=== PATIENT | male | born 1980 | race Caucasian/White ===

== ENCOUNTER 2017-11-04 13:21 | Inpatient (IN) ==
[2017-11-04] MEDS ORDERED: CLINDAMYCIN INJ 600 MG in PREMIX 1 EACH IV STA (13:52)
[2017-11-04] MEDS ORDERED: HYDROmorphone 2 MG/1 ML VIAL IV STA ×2 (13:55→16:19)
[2017-11-04] MEDS ORDERED: ONDANSETRON 4 MG/2 ML VIAL IV ONE ×2 (13:55→20:14)
[2017-11-04 14:45] LABS: Basophils # 0.1 10*3/uL (0.0-0.2); Basophils % 0.2 % (0.0-0.8); Eosinophils # 0.2 10*3/uL (0.0-0.87); Eosinophils % 0.7 % (0.00-10.9); Hematocrit 39.7 VOL% (42.0-52.0); Hemoglobin 13.2 GM/DL (14.0-18.0); Immature Granulocytes % 1.1 %; Immature Granulocytes Absolute 0.28 #; Lymphocytes # 2.2 10*3/uL (1.4-4.0); Lymphocytes % 8.7 % (21.2-54.2); Mean Corpuscular HGB Conc 33.2 GM/DL (32-36); Mean Corpuscular Hemoglobin 28 PG (27-34); Mean Corpuscular Volume 83.8 FL (87-102); Mean Platelet Volume 9.5 FL (9.6-12.0); Monocytes # 1.4 10*3/uL (0.11-0.8); Monocytes % 5.5 % (1.7-12.7); Neutrophils % 83.8 % (38.7-73.9); Platelet Count 375 T/CUMM (130-400); Red Blood Count 4.74 MC/CUMM (3.8-5.5); Red Cell Distribution Width 13.5 % (9.3-17.3); White Blood Count 25.1 T/CUMM (4-12)
[2017-11-04 15:06] LABS: Albumin 2.2 G/DL (3.4-5.0); Bilirubin,Total 0.6 MG/DL (0.2-1.0); Calcium 8.8 MG/DL (8.5-10.1); Osmolality,Calculated 278.5 MOS/KG (273-304); Potassium 3.9 MMOL/L (3.5-5.1); Total Protein 7.4 G/DL (6.4-8.3)
[2017-11-04 15:07] LABS: Lactic Acid 1.7 MMOL/L (0.4-2.0)
[2017-11-04] MEDS ORDERED: INSULIN REGULAR 100 UNIT/ML SUBCUT STA (15:08)
[2017-11-04] MEDS ORDERED: TOBRAMYCIN INJ 80 MG in SODIUM CHLORIDE 0.9% 100 ML IV STA (15:21)
[2017-11-04] MEDS ORDERED: SODIUM CHLORIDE 0.9% 1,000 ML IV STA (15:23)
[2017-11-04 15:56] LABS: Apearance,Urine CLEAR (Clear); Bilirubin,Urine Negative (Negative); Blood, Urine Negative (Negative); Glucose,Urine (UA) >=500 mg/dL (Negative); Hyaline Casts,Urine 1 /LPF (0-3); Ketones,Urine 80 mg/dL (Negative); Mucus,Urine Occasional /LPF (Occasional); Nitrite,Urine Negative (Negative); Protein,Urine 30 MG/DL; RBC,Urine 2 /HPF (0-4); Sperm,Urine Occasional /HPF (Negative); Squamous Epithelial Cell,Urine Occasional /HPF (0-10); Urine Color Yellow (Yellow); Urine Specific Gravity 1.035 (1.001-1.035); Urine Urobilinogen < 2.0 EU/DL (0.2-1.0); WBC,Urine 11 /HPF (0-6)
[2017-11-04 16:00] LABS: Band Neutrophils 1 % (0-10); Eosinophils 1 % (0-10); Lymphocytes 9 % (20-55); Segmented Neutrophils 86 % (50-85); Total Cells Counted 100
[2017-11-04 16:12] LABS: Platelet Estimate Normal
[2017-11-04 16:13] LABS: Polychromasia Slight
[2017-11-04] MEDS ORDERED: DEXTROSE 50% 25 GM/50 ML VIAL IV PRN (18:27)
[2017-11-04] MEDS ORDERED: GLUCAGON 1 MG VIAL IM PRN (18:27)
[2017-11-04] MEDS ORDERED: ONDANSETRON 4 MG/2 ML VIAL ONE ×2 (20:10→20:23)
[2017-11-04 20:16] LABS: Apearance,Urine Slightly Hazy (Clear); Bilirubin,Urine Negative (Negative); Blood, Urine Small mg/dL (Negative); Glucose,Urine (UA) >=500 mg/dL (Negative); Ketones,Urine 20 mg/dL (Negative); Mucus,Urine Occasional /LPF (Occasional); Nitrite,Urine Negative (Negative); Protein,Urine 30 MG/DL; RBC,Urine 10 /HPF (0-4); Squamous Epithelial Cell,Urine Occasional /HPF (0-10); Urine Color Yellow (Yellow); Urine Specific Gravity 1.029 (1.001-1.035); Urine Urobilinogen < 2.0 EU/DL (0.2-1.0); WBC,Urine 1 /HPF (0-6)
[2017-11-04] MEDS ORDERED: PROPOFOL 200 MG/20 ML VIAL IV ONE (20:22)
[2017-11-04] MEDS ORDERED: SEVOFLURANE 1 UNIT/15 MINUTE INH ONE (20:22)
[2017-11-04] MEDS: HYDROmorphone 2 MG/1 ML VIAL IV PRN ×4 (20:23→20:40)
[2017-11-04] MEDS ORDERED: SODIUM CHLORIDE 0.9% 1,000 ML IV ONE (20:23)
[2017-11-04] MEDS ORDERED: ROCURONIUM 100 MG/10 ML VIAL IV ONE (20:23)
[2017-11-04] MEDS ORDERED: SUCCINYLCHOLINE 200 MG/10 ML VIAL ONE (20:23)
[2017-11-04] MEDS ORDERED: fentaNYL 100 MCG/2 ML VIAL ONE (20:23)
[2017-11-04] MEDS ORDERED: ACETAMINOPHEN 1,000 MG/100 ML VIAL IV ONE (20:23)
[2017-11-04] MEDS ORDERED: PROMETHAZINE 25 MG/1 ML VIAL ONE (20:31)
[2017-11-04] MEDS ORDERED: PROMETHAZINE INJ 25 MG in SODIUM CHLORIDE 0.9% 50 ML IV ONE (20:36)
[2017-11-04] MEDS ORDERED: INSULIN GLARGINE 100 UNIT/ML SUBCUT SCH (21:00)
[2017-11-04] MEDS: SODIUM CHLORIDE 0.9% 1,000 ML IV SCH (21:45)
[2017-11-04] MEDS: sitaGLIPtin 25 MG TABLET PO SCH (21:46)
[2017-11-04] MEDS: INSULIN REGULAR 100 UNIT/ML SUBCUT SCH (22:07)
[2017-11-04] MEDS: CLINDAMYCIN INJ 600 MG in PREMIX 1 EACH IV SCH (22:35)
[2017-11-05] MEDS: TOBRAMYCIN INJ 80 MG in SODIUM CHLORIDE 0.9% 100 ML IV SCH ×3 (00:25→17:20)
[2017-11-05] MEDS: HYDROmorphone 2 MG/1 ML VIAL IV PRN ×3 (01:43→15:43)
[2017-11-05] MEDS: CLINDAMYCIN INJ 600 MG in PREMIX 1 EACH IV SCH ×4 (03:39→22:21)
[2017-11-05 06:50] LABS: Basophils # 0.1 10*3/uL (0.0-0.2); Basophils % 0.2 % (0.0-0.8); Eosinophils # 0.3 10*3/uL (0.0-0.87); Eosinophils % 0.9 % (0.00-10.9); Hematocrit 36.8 VOL% (42.0-52.0); Hemoglobin 12.2 GM/DL (14.0-18.0); Immature Granulocytes % 0.9 %; Immature Granulocytes Absolute 0.25 #; Lymphocytes # 2.5 10*3/uL (1.4-4.0); Lymphocytes % 8.8 % (21.2-54.2); Mean Corpuscular HGB Conc 33.2 GM/DL (32-36); Mean Corpuscular Hemoglobin 29 PG (27-34); Mean Corpuscular Volume 86.4 FL (87-102); Mean Platelet Volume 9.5 FL (9.6-12.0); Monocytes # 1.5 10*3/uL (0.11-0.8); Monocytes % 5.2 % (1.7-12.7); Neutrophils # 23.9 10*3/uL (1.4-7.4); Platelet Count 361 T/CUMM (130-400); Red Blood Count 4.26 MC/CUMM (3.8-5.5); White Blood Count 28.5 T/CUMM (4-12)
[2017-11-05 07:12] LABS: Risk Ratio 11.33; VLDL CHOLESTEROL 39.4 MG/DL
[2017-11-05 07:25] LABS: Bilirubin,Total 0.4 MG/DL (0.2-1.0); Calcium 8.4 MG/DL (8.5-10.1); Osmolality,Calculated 281.8 MOS/KG (273-304); Potassium 4.8 MMOL/L (3.5-5.1); Thyroid Stimulating Hormone 1.08 uIU/ml (0.358-3.74); Total Protein 6.9 G/DL (6.4-8.3)
[2017-11-05 07:26] LABS: Band Neutrophils 8 % (0-10); Eosinophils 1 % (0-10); Hypochromasia Slight; Lymphocytes 10 % (20-55); Platelet Estimate Adequate; Segmented Neutrophils 79 % (50-85); Total Cells Counted 100
[2017-11-05] MEDS: metFORMIN 500 MG TABLET PO SCH ×2 (09:27→22:20)
[2017-11-05] MEDS: LISINOPRIL 2.5 MG TABLET PO SCH (09:28)
[2017-11-05] MEDS: INSULIN REGULAR 100 UNIT/ML SUBCUT SCH ×4 (09:28→22:20)
[2017-11-05] MEDS ORDERED: PROMETHAZINE 25 MG/1 ML VIAL IM PRN (13:16)
[2017-11-05] MEDS: ONDANSETRON 4 MG/2 ML VIAL IV PRN (13:32)
[2017-11-05] MEDS: SODIUM HYPOCHLORITE 0.25% IRRIG 473 ML BOTTLE TOP SCH ×2 (13:33→22:20)
[2017-11-05] MEDS: SODIUM CHLORIDE 0.9% 1,000 ML IV SCH (18:43)
[2017-11-05] MEDS: sitaGLIPtin 25 MG TABLET PO SCH (22:20)
[2017-11-05] MEDS: INSULIN GLARGINE 100 UNIT/ML SUBCUT SCH (22:21)
[2017-11-06] MEDS: CLINDAMYCIN INJ 600 MG in PREMIX 1 EACH IV SCH ×2 (05:46→12:47)
[2017-11-06 06:21] LABS: Basophils # 0.1 10*3/uL (0.0-0.2); Basophils % 0.3 % (0.0-0.8); Eosinophils # 0.4 10*3/uL (0.0-0.87); Eosinophils % 2.5 % (0.00-10.9); Hematocrit 34.3 VOL% (42.0-52.0); Hemoglobin 11.3 GM/DL (14.0-18.0); Immature Granulocytes % 1.1 %; Immature Granulocytes Absolute 0.19 #; Lymphocytes # 2.9 10*3/uL (1.4-4.0); Lymphocytes % 16.5 % (21.2-54.2); Mean Corpuscular HGB Conc 32.9 GM/DL (32-36); Mean Corpuscular Hemoglobin 28 PG (27-34); Mean Corpuscular Volume 83.7 FL (87-102); Mean Platelet Volume 9.7 FL (9.6-12.0); Monocytes # 1.2 10*3/uL (0.11-0.8); Monocytes % 7.1 % (1.7-12.7); Neutrophils # 12.6 10*3/uL (1.4-7.4); Neutrophils % 72.5 % (38.7-73.9); Platelet Count 357 T/CUMM (130-400); Red Cell Distribution Width 14.1 % (9.3-17.3); White Blood Count 17.4 T/CUMM (4-12)
[2017-11-06 06:53] LABS: Osmolality,Calculated 271.2 MOS/KG (273-304); Potassium 3.8 MMOL/L (3.5-5.1)
[2017-11-06] MEDS: metFORMIN 500 MG TABLET PO SCH ×2 (08:54→21:14)
[2017-11-06] MEDS: INSULIN REGULAR 100 UNIT/ML SUBCUT SCH ×5 (08:55→21:15)
[2017-11-06] MEDS: LISINOPRIL 2.5 MG TABLET PO SCH (08:55)
[2017-11-06] MEDS: SODIUM CHLORIDE 0.9% 1,000 ML IV SCH (09:06)
[2017-11-06] MEDS ORDERED: ERGOCALCIFEROL 50,000 UNIT CAPSULE PO SCH (09:30)
[2017-11-06] MEDS: LACTOBACILLUS ACIDOPHILUS/BULGARICUS CAPLET PO SCH (12:47)
[2017-11-06] MEDS ORDERED: LEVOFLOXACIN INJ 500 MG in PREMIX 1 EACH IV SCH (13:00)
[2017-11-06] MEDS ORDERED: LINEZOLID INJ 600 MG in PREMIX 1 EACH IV SCH (15:00)
[2017-11-06] MEDS: FLUCONAZOLE 100 MG TABLET PO SCH (15:11)
[2017-11-06] MEDS: SODIUM HYPOCHLORITE 0.25% IRRIG 473 ML BOTTLE TOP SCH ×2 (16:21→21:15)
[2017-11-06] MEDS: ONDANSETRON 4 MG/2 ML VIAL IV PRN (16:21)
[2017-11-06] MEDS: HYDROmorphone 2 MG/1 ML VIAL IV PRN (16:22)
[2017-11-06] MEDS: cefTRIAXone 1,000 MG in SYRINGE 1 EACH IV SCH (17:50)
[2017-11-06] MEDS: sitaGLIPtin 25 MG TABLET PO SCH (21:13)
[2017-11-06] MEDS: CALCIUM (CARBONATE)/VITAMIN D 600 MG-400 UNIT TABLET PO SCH (21:14)
[2017-11-06] MEDS: INSULIN GLARGINE 100 UNIT/ML SUBCUT SCH (21:15)
[2017-11-07] MEDS: cefTRIAXone 1,000 MG in SYRINGE 1 EACH IV SCH ×2 (05:11→18:18)
[2017-11-07 06:38] LABS: Basophils % 0.2 % (0.0-0.8); Eosinophils # 0.5 10*3/uL (0.0-0.87); Eosinophils % 3.5 % (0.00-10.9); Hematocrit 35.2 VOL% (42.0-52.0); Hemoglobin 11.2 GM/DL (14.0-18.0); Immature Granulocytes % 1.2 %; Immature Granulocytes Absolute 0.18 #; Lymphocytes % 19.4 % (21.2-54.2); Mean Corpuscular HGB Conc 31.8 GM/DL (32-36); Mean Corpuscular Hemoglobin 28 PG (27-34); Mean Corpuscular Volume 86.9 FL (87-102); Mean Platelet Volume 9.7 FL (9.6-12.0); Monocytes % 6.7 % (1.7-12.7); Neutrophils # 10.7 10*3/uL (1.4-7.4); Platelet Count 374 T/CUMM (130-400); Red Blood Count 4.05 MC/CUMM (3.8-5.5); Red Cell Distribution Width 14.1 % (9.3-17.3); White Blood Count 15.5 T/CUMM (4-12)
[2017-11-07 07:06] LABS: Calcium 8.4 MG/DL (8.5-10.1); Potassium 3.8 MMOL/L (3.5-5.1)
[2017-11-07] MEDS ORDERED: MAGNESIUM SULF RIDER 2 GM in PREMIX 1 EACH IV ONE (07:43)
[2017-11-07] MEDS ORDERED: INSULIN GLARGINE 100 UNIT/ML SUBCUT SCH ×3 (09:00→15:05)
[2017-11-07] MEDS: LACTOBACILLUS ACIDOPHILUS/BULGARICUS CAPLET PO SCH (09:11)
[2017-11-07] MEDS: INSULIN REGULAR 100 UNIT/ML SUBCUT SCH ×7 (09:11→20:37)
[2017-11-07] MEDS: CALCIUM (CARBONATE)/VITAMIN D 600 MG-400 UNIT TABLET PO SCH ×2 (09:11→20:36)
[2017-11-07] MEDS: FLUCONAZOLE 100 MG TABLET PO SCH (09:11)
[2017-11-07] MEDS: metFORMIN 500 MG TABLET PO SCH ×2 (09:31→20:36)
[2017-11-07] MEDS: LISINOPRIL 2.5 MG TABLET PO SCH (09:31)
[2017-11-07] MEDS: HYDROmorphone 2 MG/1 ML VIAL IV PRN (16:57)
[2017-11-07] MEDS: ONDANSETRON 4 MG/2 ML VIAL IV PRN (16:59)
[2017-11-07] MEDS: SODIUM HYPOCHLORITE 0.25% IRRIG 473 ML BOTTLE TOP SCH ×2 (17:39→20:39)
[2017-11-07] MEDS: sitaGLIPtin 25 MG TABLET PO SCH (20:36)
[2017-11-08] MEDS: cefTRIAXone 1,000 MG in SYRINGE 1 EACH IV SCH ×2 (05:53→17:27)
[2017-11-08 06:28] LABS: Basophils # 0.1 10*3/uL (0.0-0.2); Basophils % 0.4 % (0.0-0.8); Eosinophils # 0.5 10*3/uL (0.0-0.87); Eosinophils % 3.1 % (0.00-10.9); Hematocrit 35.2 VOL% (42.0-52.0); Hemoglobin 11.3 GM/DL (14.0-18.0); Immature Granulocytes % 1.2 %; Immature Granulocytes Absolute 0.18 #; Lymphocytes # 2.8 10*3/uL (1.4-4.0); Lymphocytes % 18.6 % (21.2-54.2); Mean Corpuscular HGB Conc 32.1 GM/DL (32-36); Mean Corpuscular Hemoglobin 28 PG (27-34); Mean Corpuscular Volume 86.3 FL (87-102); Mean Platelet Volume 9.9 FL (9.6-12.0); Monocytes % 6.5 % (1.7-12.7); Neutrophils # 10.6 10*3/uL (1.4-7.4); Neutrophils % 70.2 % (38.7-73.9); Platelet Count 399 T/CUMM (130-400); Red Blood Count 4.08 MC/CUMM (3.8-5.5); Red Cell Distribution Width 14.2 % (9.3-17.3); White Blood Count 15.2 T/CUMM (4-12)
[2017-11-08 07:21] LABS: Calcium 8.8 MG/DL (8.5-10.1); Osmolality,Calculated 278.7 MOS/KG (273-304); Potassium 3.9 MMOL/L (3.5-5.1)
[2017-11-08] MEDS ORDERED: MAGNESIUM SULF RIDER 2 GM in PREMIX 1 EACH IV ONE (07:40)
[2017-11-08] MEDS: LACTOBACILLUS ACIDOPHILUS/BULGARICUS CAPLET PO SCH (08:17)
[2017-11-08] MEDS: metFORMIN 500 MG TABLET PO SCH ×2 (08:17→21:26)
[2017-11-08] MEDS: FLUCONAZOLE 100 MG TABLET PO SCH (08:18)
[2017-11-08] MEDS: INSULIN REGULAR 100 UNIT/ML SUBCUT SCH ×7 (08:18→21:27)
[2017-11-08] MEDS: LISINOPRIL 2.5 MG TABLET PO SCH (08:18)
[2017-11-08] MEDS: CALCIUM (CARBONATE)/VITAMIN D 600 MG-400 UNIT TABLET PO SCH ×2 (08:18→21:26)
[2017-11-08] MEDS ORDERED: INSULIN GLARGINE 100 UNIT/ML SUBCUT SCH (08:43)
[2017-11-08] MEDS: HYDROmorphone 2 MG/1 ML VIAL IV PRN ×2 (10:00→13:12)
[2017-11-08] MEDS: SULFAMETHOX/TRIMETHOPRIM 800-160 MG TABLET PO SCH ×2 (11:52→21:26)
[2017-11-08] MEDS: ONDANSETRON 4 MG/2 ML VIAL IV PRN (13:12)
[2017-11-08] MEDS: SODIUM HYPOCHLORITE 0.25% IRRIG 473 ML BOTTLE TOP SCH ×2 (17:13→21:33)
[2017-11-08] MEDS: sitaGLIPtin 25 MG TABLET PO SCH (21:26)
[2017-11-09] MEDS: cefTRIAXone 1,000 MG in SYRINGE 1 EACH IV SCH (04:58)
[2017-11-09 06:35] LABS: Basophils # 0.1 10*3/uL (0.0-0.2); Basophils % 0.3 % (0.0-0.8); Eosinophils # 0.4 10*3/uL (0.0-0.87); Eosinophils % 2.9 % (0.00-10.9); Hematocrit 36.3 VOL% (42.0-52.0); Hemoglobin 11.9 GM/DL (14.0-18.0); Immature Granulocytes % 1.3 %; Lymphocytes # 2.8 10*3/uL (1.4-4.0); Lymphocytes % 18.3 % (21.2-54.2); Mean Corpuscular HGB Conc 32.8 GM/DL (32-36); Mean Corpuscular Hemoglobin 28 PG (27-34); Mean Corpuscular Volume 85.4 FL (87-102); Mean Platelet Volume 9.9 FL (9.6-12.0); Monocytes # 1.1 10*3/uL (0.11-0.8); Monocytes % 6.8 % (1.7-12.7); Neutrophils # 10.8 10*3/uL (1.4-7.4); Neutrophils % 70.4 % (38.7-73.9); Platelet Count 468 T/CUMM (130-400); Red Blood Count 4.25 MC/CUMM (3.8-5.5); Red Cell Distribution Width 14.2 % (9.3-17.3); White Blood Count 15.4 T/CUMM (4-12)
[2017-11-09 06:53] LABS: Calcium 9.2 MG/DL (8.5-10.1); Osmolality,Calculated 274.7 MOS/KG (273-304); Potassium 4.1 MMOL/L (3.5-5.1)
[2017-11-09] MEDS ORDERED: SCOPOLAMINE 1.5 MG PATCH TRANSDERM ONE (08:00)
[2017-11-09] MEDS: INSULIN REGULAR 100 UNIT/ML SUBCUT SCH ×4 (08:38→13:22)
[2017-11-09] MEDS ORDERED: MUPIROCIN 2% OINT 22 GM TUBE TOP ONE (09:43)
[2017-11-09] MEDS ORDERED: PROPOFOL 200 MG/20 ML VIAL IV ONE (10:28)
[2017-11-09] MEDS ORDERED: ALBUTEROL 2.5 MG/3 ML NEB RESP TX ONE (10:29)
[2017-11-09] MEDS ORDERED: MIDAZOLAM 2 MG/2 ML VIAL ONE (10:29)
[2017-11-09] MEDS ORDERED: fentaNYL 100 MCG/2 ML VIAL ONE (10:29)
[2017-11-09] MEDS ORDERED: SEVOFLURANE 1 UNIT/15 MINUTE INH ONE (10:29)
[2017-11-09] MEDS ORDERED: ONDANSETRON 4 MG/2 ML VIAL ONE ×2 (10:29→10:33)
[2017-11-09] MEDS ORDERED: PROMETHAZINE 25 MG/1 ML VIAL ONE (10:29)
[2017-11-09] MEDS ORDERED: ROCURONIUM 100 MG/10 ML VIAL IV ONE (10:30)
[2017-11-09] MEDS ORDERED: SUCCINYLCHOLINE 200 MG/10 ML VIAL ONE (10:30)
[2017-11-09] MEDS ORDERED: HYDROmorphone 2 MG/1 ML VIAL ONE (10:33)
[2017-11-09] MEDS ORDERED: ONDANSETRON 4 MG/2 ML VIAL IV PRN (10:34)
[2017-11-09] MEDS: HYDROmorphone 2 MG/1 ML VIAL IV PRN ×3 (10:38→11:05)
[2017-11-09] MEDS: metFORMIN 500 MG TABLET PO SCH (11:48)
[2017-11-09] MEDS: CALCIUM (CARBONATE)/VITAMIN D 600 MG-400 UNIT TABLET PO SCH (11:48)
[2017-11-09] MEDS: LACTOBACILLUS ACIDOPHILUS/BULGARICUS CAPLET PO SCH (11:48)
[2017-11-09] MEDS: LISINOPRIL 2.5 MG TABLET PO SCH (11:49)
[2017-11-09] MEDS: FLUCONAZOLE 100 MG TABLET PO SCH (11:49)
[2017-11-09] MEDS: SULFAMETHOX/TRIMETHOPRIM 800-160 MG TABLET PO SCH (11:49)
[2017-11-09] MEDS: SODIUM HYPOCHLORITE 0.25% IRRIG 473 ML BOTTLE TOP SCH (11:50)
[2017-11-09] MEDS ORDERED: DEXTROSE 50% 25 GM/50 ML VIAL IV PRN (12:04)
[2017-11-09] MEDS ORDERED: GLUCAGON 1 MG VIAL IM PRN (12:04)
[2017-11-09 12:06] VITALS: BP 143/84
== END 2017-11-09 15:29 | disposition home or self-care (01) | DRG 638 ==
LOC: N.ED 13:21 → N.EDINP 15:22 → SUATTDRO 15:22 → N.EDINP 17:32 → N.5E 18:01
PROVIDERS: ADMIT Emergency Medicine; ATTEND Urology

== ENCOUNTER 2021-09-04 21:35 | Inpatient (IN) ==
[2021-09-04] MEDS ORDERED: SODIUM CHLORIDE 0.9% 3,250 ML IV ONE (22:38)
[2021-09-04 23:21] LABS: Basophils # 0.1 10*3/uL (0.0-0.2); Basophils % 0.3 % (0.0-0.8); Eosinophils # 0.3 10*3/uL (0.0-0.87); Eosinophils % 1.6 % (0.00-10.9); Hematocrit 40.7 VOL% (42.0-52.0); Hemoglobin 13.1 GM/DL (14.0-18.0); Immature Granulocytes % 0.9 %; Immature Granulocytes Absolute 0.17 #; Lymphocytes # 2.8 10*3/uL (1.4-4.0); Lymphocytes % 14.7 % (21.2-54.2); Mean Corpuscular HGB Conc 32.2 GM/DL (32-36); Mean Corpuscular Volume 86.2 FL (87-102); Mean Platelet Volume 9.5 FL (9.6-12.0); Monocytes # 1.2 10*3/uL (0.11-0.8); Monocytes % 6.4 % (1.7-12.7); Neutrophils % 76.1 % (38.7-73.9); Platelet Count 523 T/CUMM (130-400); Red Blood Count 4.72 MC/CUMM (3.8-5.5); Red Cell Distribution Width 13.7 % (9.3-17.3); White Blood Count 18.9 T/CUMM (4-12)
[2021-09-04 23:37] LABS: PT Patient Result 11.4 SECS (10.5-12.0)
[2021-09-04 23:42] LABS: Alanine Aminotransferase 20 U/L (16-61); Albumin 2.3 G/DL (3.4-5.0); Alkaline Phosphatase 113 U/L (45-117); Aspartate Amino Transferase 6 U/L (0-37); Bilirubin,Total < 0.39 MG/DL (0.20-1.00); Blood Urea Nitrogen 7 MG/DL (7-18); Calcium 8.8 MG/DL (8.5-10.1); Carbon Dioxide 26 MMOL/L (21-32); Chloride 97 MMOL/L (98-107); Estimated Glom Filtration Rate 138 ML/MIN; Osmolality,Calculated 282.8 MOS/KG (273-304); Potassium 4.1 MMOL/L (3.5-5.1); Sodium 130 MMOL/L (136-145); Total Protein 7.2 G/DL (6.4-8.2)
[2021-09-04 23:43] LABS: Glucose 543 MG/DL (74-106)
[2021-09-04] MEDS ORDERED: VANCOMYCIN INJ 1,000 MG in SODIUM CHLORIDE 0.9% 250 ML IV STA (23:49)
[2021-09-04] MEDS ORDERED: cefTRIAXone 1,000 MG in SODIUM CHLORIDE 0.9% 100 ML IV STA (23:49)
[2021-09-05] MEDS ORDERED: INSULIN REGULAR 100 UNIT/ML IV STA (00:01)
[2021-09-05] MEDS ORDERED: GLUCAGON 1 MG VIAL IM PRN (00:18)
[2021-09-05] MEDS ORDERED: diphenhydrAMINE CAP 25 MG CAPSULE PO PRN (00:18)
[2021-09-05] MEDS ORDERED: guaiFENesin/DM ER 600-30 MG TABLET PO PRN (00:18)
[2021-09-05] MEDS ORDERED: ZALEPLON 5 MG CAPSULE PO PRN (00:18)
[2021-09-05] MEDS ORDERED: hydrALAZINE 20 MG/1 ML VIAL IV PRN (00:18)
[2021-09-05] MEDS ORDERED: NICOTINE 21 MG/24 HR PATCH TRANSDERM PRN (00:18)
[2021-09-05] MEDS ORDERED: ACETAMINOPHEN 325 MG TABLET PO PRN (00:18)
[2021-09-05] MEDS ORDERED: DEXTROSE 10% 250 ML BAG IV PRN ×2 (00:18→18:13)
[2021-09-05] MEDS: MORPHINE 2 MG/1 ML SYRINGE IV PRN ×3 (01:19→10:40)
[2021-09-05 05:33] LABS: Basophils # 0.1 10*3/uL (0.0-0.2); Basophils % 0.3 % (0.0-0.8); Eosinophils # 0.4 10*3/uL (0.0-0.87); Hematocrit 39.6 VOL% (42.0-52.0); Hemoglobin 12.9 GM/DL (14.0-18.0); Immature Granulocytes % 0.6 %; Immature Granulocytes Absolute 0.12 #; Lymphocytes # 2.9 10*3/uL (1.4-4.0); Lymphocytes % 15.2 % (21.2-54.2); Mean Corpuscular HGB Conc 32.6 GM/DL (32-36); Mean Corpuscular Volume 85.9 FL (87-102); Mean Platelet Volume 9.6 FL (9.6-12.0); Monocytes # 1.3 10*3/uL (0.11-0.8); Monocytes % 6.5 % (1.7-12.7); Neutrophils % 75.4 % (38.7-73.9); Platelet Count 499 T/CUMM (130-400); Red Blood Count 4.61 MC/CUMM (3.8-5.5); Red Cell Distribution Width 13.7 % (9.3-17.3); White Blood Count 19.3 T/CUMM (4-12)
[2021-09-05 05:47] LABS: Calcium 8.4 MG/DL (8.5-10.1); Osmolality,Calculated 275.4 MOS/KG (273-304); Potassium 3.9 MMOL/L (3.5-5.1)
[2021-09-05 07:11] LABS: Bilirubin,Urine Negative (Negative); Blood, Urine Trace mg/dL (Negative); Glucose,Urine (UA) >1000 mg/dL (Negative); Ketones,Urine Negative (Negative); Mucus,Urine Occasional /LPF (Occasional); Nitrite,Urine Negative (Negative); Protein,Urine Negative (Negative); RBC,Urine 1 /HPF (0-4); Sperm,Urine Occasional /HPF (Negative); Squamous Epithelial Cell,Urine Occasional /HPF (0-10); Urine Appearance Clear (Clear); Urine Color Yellow (Yellow); Urine Specific Gravity 1.015 (1.001-1.035); Urine Urobilinogen 0.2 eU/dL (<2.0)
[2021-09-05] MEDS ORDERED: MAGNESIUM SULF RIDER 2 GM/50 ML PREMIX IV ONE (09:00)
[2021-09-05] MEDS ORDERED: ENOXAPARIN 40 MG/0.4 ML SYRINGE SUBCUT SCH (09:00)
[2021-09-05] MEDS: INSULIN LISPRO 100 UNIT/ML SUBCUT SCH ×4 (09:38→21:29)
[2021-09-05] MEDS: PANTOPRAZOLE 40 MG TABLET PO SCH (09:39)
[2021-09-05] MEDS: VANCOMYCIN INJ 1,500 MG in SODIUM CHLORIDE 0.9% 500 ML IV SCH ×2 (09:39→21:58)
[2021-09-05] MEDS: INSULIN GLARGINE 100 UNIT/ML SUBCUT SCH (09:39)
[2021-09-05] MEDS: MEROPENEM 500 MG in SODIUM CHLORIDE 0.9% 100 ML IV SCH ×3 (12:51→21:27)
[2021-09-05] MEDS ORDERED: ROPIVACAINE 0.5% 30 ML VIAL ONE (16:19)
[2021-09-05] MEDS ORDERED: BACITRACIN OINT 0.9 GM PACK TOP ONE (16:19)
[2021-09-05] MEDS ORDERED: fentaNYL 100 MCG/2 ML VIAL ONE (17:18)
[2021-09-05] MEDS ORDERED: METOCLOPRAMIDE 10 MG/2 ML VIAL ONE (17:21)
[2021-09-05] MEDS ORDERED: GENTAMICIN 80 MG/2 ML VIAL ONE (17:32)
[2021-09-05] MEDS ORDERED: SODIUM HYPOCHLORITE 0.25% IRRIG 473 ML BOTTLE ONE (17:39)
[2021-09-05] MEDS ORDERED: HYDROmorphone 1 MG/1 ML SYRINGE ONE ×2 (18:02→18:18)
[2021-09-05] MEDS ORDERED: propofoL 200 MG/20 ML VIAL IV ONE (18:09)
[2021-09-05] MEDS ORDERED: LIDOCAINE 2% 5 ML VIAL ONE (18:09)
[2021-09-05] MEDS: ONDANSETRON 4 MG/2 ML VIAL IV PRN (18:16)
[2021-09-05] MEDS ORDERED: KETOROLAC 30 MG/1 ML VIAL ONE (18:19)
[2021-09-05] MEDS: HYDROmorphone 1 MG/1 ML SYRINGE IV PRN ×4 (18:20→18:40)
[2021-09-05 18:23] LABS: Bacteria,Urine Occasional /HPF (Few); Glucose,Urine (UA) 500 mg/dL (Negative); Mucus,Urine Occasional /LPF (Occasional); Protein,Urine Negative (Negative); Squamous Epithelial Cell,Urine Occasional /HPF (0-10); Urine Appearance Clear (Clear); Urine Color Yellow (Yellow); Urine Specific Gravity > 1.030 (1.001-1.035); Urine pH 5.5 (4.5-8.0)
[2021-09-05 18:24] LABS: Bilirubin,Urine Negative (Negative); Blood, Urine Negative (Negative); Ketones,Urine 15 mg/dL (Negative); Nitrite,Urine Negative (Negative); Urine Urobilinogen 0.2 eU/dL (<2.0)
[2021-09-05] MEDS: LACTATED RINGERS 1,000 ML IV SCH (18:53)
[2021-09-05] MEDS ORDERED: KETOROLAC 30 MG/1 ML VIAL IV ONE (19:00)
[2021-09-05] MEDS: ESCITALOPRAM 10 MG TABLET PO SCH (21:28)
[2021-09-06] MEDS: oxyCODONE/ACETAMINOPHEN 5-325 MG TABLET PO PRN (00:46)
[2021-09-06] MEDS: MEROPENEM 500 MG in SODIUM CHLORIDE 0.9% 100 ML IV SCH ×4 (00:46→19:31)
[2021-09-06 05:01] LABS: Basophils % 0.2 % (0.0-0.8); Eosinophils # 0.4 10*3/uL (0.0-0.87); Hematocrit 39.4 VOL% (42.0-52.0); Hemoglobin 12.4 GM/DL (14.0-18.0); Immature Granulocytes % 0.6 %; Immature Granulocytes Absolute 0.12 #; Lymphocytes # 2.1 10*3/uL (1.4-4.0); Lymphocytes % 11.1 % (21.2-54.2); Mean Corpuscular HGB Conc 31.5 GM/DL (32-36); Mean Corpuscular Volume 86.8 FL (87-102); Mean Platelet Volume 9.3 FL (9.6-12.0); Monocytes # 0.6 10*3/uL (0.11-0.8); Monocytes % 3.4 % (1.7-12.7); Neutrophils % 82.7 % (38.7-73.9); Platelet Count 462 T/CUMM (130-400); Red Blood Count 4.54 MC/CUMM (3.8-5.5); Red Cell Distribution Width 13.9 % (9.3-17.3); White Blood Count 18.7 T/CUMM (4-12)
[2021-09-06 05:16] LABS: Calcium 8.1 MG/DL (8.5-10.1); Osmolality,Calculated 277.8 MOS/KG (273-304)
[2021-09-06] MEDS ORDERED: LIDOCAINE 2% 5 ML VIAL ONE (10:25)
[2021-09-06] MEDS ORDERED: fentaNYL 100 MCG/2 ML VIAL ONE ×2 (10:25→11:24)
[2021-09-06] MEDS ORDERED: propofoL 200 MG/20 ML VIAL IV ONE (10:25)
[2021-09-06] MEDS ORDERED: MIDAZOLAM 2 MG/2 ML VIAL ONE (10:25)
[2021-09-06] MEDS ORDERED: LACTATED RINGERS 1,000 ML IV SCH (10:30)
[2021-09-06] MEDS ORDERED: METOCLOPRAMIDE 10 MG/2 ML VIAL ONE (10:47)
[2021-09-06] MEDS ORDERED: FAMOTIDINE 20 MG/2 ML VIAL IV ONE (10:48)
[2021-09-06] MEDS ORDERED: KETAMINE 500 MG/10 ML VIAL ONE (11:10)
[2021-09-06] MEDS ORDERED: SEVOFLURANE 1 UNIT/15 MINUTE INH ONE (11:20)
[2021-09-06] MEDS ORDERED: ONDANSETRON 4 MG/2 ML VIAL ONE (11:20)
[2021-09-06] MEDS ORDERED: DEXAMETHASONE 4 MG/1 ML VIAL ONE (11:20)
[2021-09-06] MEDS ORDERED: ALBUTEROL/IPRATROPIUM 3 ML NEB RESP TX ONE (11:49)
[2021-09-06] MEDS ORDERED: ONDANSETRON 4 MG/2 ML VIAL IV PRN (12:03)
[2021-09-06] MEDS: HYDROmorphone 1 MG/1 ML SYRINGE IV PRN ×3 (12:05→12:25)
[2021-09-06] MEDS ORDERED: HYDROmorphone 1 MG/1 ML SYRINGE ONE (12:05)
[2021-09-06] MEDS: INSULIN GLARGINE 100 UNIT/ML SUBCUT SCH (13:30)
[2021-09-06] MEDS: ATORVASTATIN 80 MG TABLET PO SCH (13:30)
[2021-09-06] MEDS: PANTOPRAZOLE 40 MG TABLET PO SCH (13:31)
[2021-09-06] MEDS: INSULIN LISPRO 100 UNIT/ML SUBCUT SCH ×4 (13:39→20:55)
[2021-09-06] MEDS: VANCOMYCIN INJ 1,500 MG in SODIUM CHLORIDE 0.9% 500 ML IV SCH ×2 (14:59→20:55)
[2021-09-06] MEDS: MORPHINE 2 MG/1 ML SYRINGE IV PRN (16:38)
[2021-09-06] MEDS: ESCITALOPRAM 10 MG TABLET PO SCH (20:55)
[2021-09-07] MEDS: MEROPENEM 500 MG in SODIUM CHLORIDE 0.9% 100 ML IV SCH ×4 (02:25→21:16)
[2021-09-07 06:17] LABS: Basophils % 0.2 % (0.0-0.8); Eosinophils # 0.3 10*3/uL (0.0-0.87); Hematocrit 39.3 VOL% (42.0-52.0); Hemoglobin 12.7 GM/DL (14.0-18.0); Immature Granulocytes % 0.6 %; Immature Granulocytes Absolute 0.08 #; Lymphocytes # 2.1 10*3/uL (1.4-4.0); Lymphocytes % 15.5 % (21.2-54.2); Mean Corpuscular HGB Conc 32.3 GM/DL (32-36); Mean Corpuscular Volume 86.4 FL (87-102); Mean Platelet Volume 10.1 FL (9.6-12.0); Monocytes # 0.9 10*3/uL (0.11-0.8); Monocytes % 6.6 % (1.7-12.7); Neutrophils % 75.1 % (38.7-73.9); Platelet Count 332 T/CUMM (130-400); Red Blood Count 4.55 MC/CUMM (3.8-5.5); Red Cell Distribution Width 13.8 % (9.3-17.3); White Blood Count 13.3 T/CUMM (4-12)
[2021-09-07 06:38] LABS: Calcium 8.1 MG/DL (8.5-10.1); Osmolality,Calculated 278.1 MOS/KG (273-304); Potassium 4.2 MMOL/L (3.5-5.1)
[2021-09-07] MEDS ORDERED: fentaNYL 100 MCG/2 ML VIAL ONE ×2 (07:09→07:29)
[2021-09-07] MEDS ORDERED: KETAMINE 500 MG/10 ML VIAL ONE (07:31)
[2021-09-07] MEDS: INSULIN LISPRO 100 UNIT/ML SUBCUT SCH ×4 (07:52→21:14)
[2021-09-07] MEDS ORDERED: propofoL 200 MG/20 ML VIAL IV ONE (07:57)
[2021-09-07] MEDS ORDERED: SEVOFLURANE 1 UNIT/15 MINUTE INH ONE (07:57)
[2021-09-07] MEDS ORDERED: LIDOCAINE 2% 5 ML VIAL ONE (07:57)
[2021-09-07] MEDS ORDERED: ONDANSETRON 4 MG/2 ML VIAL IV PRN (08:01)
[2021-09-07] MEDS ORDERED: HYDROmorphone 1 MG/1 ML SYRINGE ONE (08:03)
[2021-09-07] MEDS: HYDROmorphone 1 MG/1 ML SYRINGE IV PRN ×4 (08:05→08:28)
[2021-09-07] MEDS ORDERED: DEXTROSE 10% 250 ML BAG IV PRN (08:10)
[2021-09-07] MEDS ORDERED: INSULIN GLARGINE 100 UNIT/ML SUBCUT SCH (09:00)
[2021-09-07] MEDS: VANCOMYCIN INJ 1,500 MG in SODIUM CHLORIDE 0.9% 500 ML IV SCH (10:44)
[2021-09-07] MEDS: ATORVASTATIN 80 MG TABLET PO SCH (10:45)
[2021-09-07] MEDS: PANTOPRAZOLE 40 MG TABLET PO SCH (10:45)
[2021-09-07] MEDS: oxyCODONE/ACETAMINOPHEN 5-325 MG TABLET PO PRN ×2 (13:16→21:57)
[2021-09-07] MEDS: ESCITALOPRAM 10 MG TABLET PO SCH (21:13)
[2021-09-07] MEDS: VANCOMYCIN INJ 2,000 MG in SODIUM CHLORIDE 0.9% 500 ML IV SCH (22:02)
[2021-09-07] MEDS: MORPHINE 2 MG/1 ML SYRINGE IV PRN (23:56)
[2021-09-08] MEDS: MEROPENEM 500 MG in SODIUM CHLORIDE 0.9% 100 ML IV SCH ×4 (03:04→20:16)
[2021-09-08] MEDS: oxyCODONE/ACETAMINOPHEN 5-325 MG TABLET PO PRN ×2 (04:26→20:16)
[2021-09-08 05:17] LABS: Basophils % 0.2 % (0.0-0.8); Eosinophils # 0.5 10*3/uL (0.0-0.87); Eosinophils % 3.4 % (0.00-10.9); Hematocrit 36.9 VOL% (42.0-52.0); Hemoglobin 11.9 GM/DL (14.0-18.0); Immature Granulocytes % 0.6 %; Immature Granulocytes Absolute 0.08 #; Lymphocytes # 2.9 10*3/uL (1.4-4.0); Lymphocytes % 21.1 % (21.2-54.2); Mean Corpuscular HGB Conc 32.2 GM/DL (32-36); Mean Platelet Volume 9.9 FL (9.6-12.0); Monocytes # 1.1 10*3/uL (0.11-0.8); Monocytes % 7.9 % (1.7-12.7); Neutrophils % 66.8 % (38.7-73.9); Platelet Count 351 T/CUMM (130-400); Red Blood Count 4.29 MC/CUMM (3.8-5.5); Red Cell Distribution Width 13.8 % (9.3-17.3); White Blood Count 13.7 T/CUMM (4-12)
[2021-09-08 05:39] LABS: Calcium 8.5 MG/DL (8.5-10.1); Osmolality,Calculated 274.1 MOS/KG (273-304); Potassium 3.9 MMOL/L (3.5-5.1)
[2021-09-08] MEDS: INSULIN GLARGINE 100 UNIT/ML SUBCUT SCH (08:40)
[2021-09-08] MEDS: INSULIN LISPRO 100 UNIT/ML SUBCUT SCH ×4 (08:41→20:16)
[2021-09-08] MEDS: ATORVASTATIN 80 MG TABLET PO SCH (08:42)
[2021-09-08] MEDS: PANTOPRAZOLE 40 MG TABLET PO SCH (08:42)
[2021-09-08] MEDS: VANCOMYCIN INJ 2,000 MG in SODIUM CHLORIDE 0.9% 500 ML IV SCH ×2 (09:31→21:55)
[2021-09-08] MEDS: MORPHINE 2 MG/1 ML SYRINGE IV PRN ×2 (09:31→14:08)
[2021-09-08] MEDS: ESCITALOPRAM 10 MG TABLET PO SCH (20:16)
[2021-09-09] MEDS: MEROPENEM 500 MG in SODIUM CHLORIDE 0.9% 100 ML IV SCH ×4 (01:08→22:18)
[2021-09-09] MEDS: oxyCODONE/ACETAMINOPHEN 5-325 MG TABLET PO PRN ×3 (01:09→22:15)
[2021-09-09 06:17] LABS: Basophils # 0.1 10*3/uL (0.0-0.2); Basophils % 0.3 % (0.0-0.8); Eosinophils # 0.5 10*3/uL (0.0-0.87); Eosinophils % 3.3 % (0.00-10.9); Hematocrit 36.5 VOL% (42.0-52.0); Hemoglobin 11.6 GM/DL (14.0-18.0); Immature Granulocytes % 0.7 %; Immature Granulocytes Absolute 0.11 #; Lymphocytes # 3.2 10*3/uL (1.4-4.0); Lymphocytes % 20.3 % (21.2-54.2); Mean Corpuscular HGB Conc 31.8 GM/DL (32-36); Mean Corpuscular Volume 86.9 FL (87-102); Mean Platelet Volume 10.7 FL (9.6-12.0); Monocytes # 1.4 10*3/uL (0.11-0.8); Monocytes % 8.7 % (1.7-12.7); Neutrophils % 66.7 % (38.7-73.9); Platelet Count 302 T/CUMM (130-400); Red Cell Distribution Width 13.9 % (9.3-17.3); White Blood Count 15.5 T/CUMM (4-12)
[2021-09-09 06:33] LABS: Calcium 8.5 MG/DL (8.5-10.1); Osmolality,Calculated 272.1 MOS/KG (273-304); Potassium 4.2 MMOL/L (3.5-5.1)
[2021-09-09] MEDS: ATORVASTATIN 80 MG TABLET PO SCH (07:59)
[2021-09-09] MEDS: INSULIN GLARGINE 100 UNIT/ML SUBCUT SCH (07:59)
[2021-09-09] MEDS: PANTOPRAZOLE 40 MG TABLET PO SCH (07:59)
[2021-09-09] MEDS: INSULIN LISPRO 100 UNIT/ML SUBCUT SCH ×4 (09:09→22:18)
[2021-09-09] MEDS: VANCOMYCIN INJ 2,000 MG in SODIUM CHLORIDE 0.9% 500 ML IV SCH (09:34)
[2021-09-09] MEDS ORDERED: LACTATED RINGERS 1,000 ML IV SCH (14:00)
[2021-09-09] MEDS ORDERED: fentaNYL 100 MCG/2 ML VIAL ONE (17:26)
[2021-09-09] MEDS ORDERED: LIDOCAINE 2% 5 ML VIAL ONE (17:55)
[2021-09-09] MEDS ORDERED: propofoL 200 MG/20 ML VIAL IV ONE (17:55)
[2021-09-09] MEDS ORDERED: SEVOFLURANE 1 UNIT/15 MINUTE INH ONE (17:55)
[2021-09-09] MEDS ORDERED: ONDANSETRON 4 MG/2 ML VIAL ONE (17:55)
[2021-09-09] MEDS ORDERED: DEXTROSE 50% 25 GM/50 ML VIAL IV PRN (17:56)
[2021-09-09] MEDS ORDERED: MEPERIDINE 25 MG/1 ML VIAL ONE ×2 (18:21→18:31)
[2021-09-09] MEDS: MEPERIDINE 25 MG/1 ML VIAL IV PRN ×2 (18:25→18:35)
[2021-09-09] MEDS ORDERED: diphenhydrAMINE 50 MG/1 ML VIAL ONE (18:31)
[2021-09-09] MEDS ORDERED: PROMETHAZINE INJ 25 MG in SODIUM CHLORIDE 0.9% 50 ML IV PRN (18:38)
[2021-09-09] MEDS ORDERED: diphenhydrAMINE 50 MG/1 ML VIAL IV PRN (18:38)
[2021-09-09] MEDS ORDERED: ONDANSETRON 4 MG/2 ML VIAL IV PRN (18:38)
[2021-09-09] MEDS: HYDROmorphone 1 MG/1 ML SYRINGE IV PRN ×2 (19:10→19:15)
[2021-09-09] MEDS ORDERED: HYDROmorphone 1 MG/1 ML SYRINGE ONE (19:10)
[2021-09-09] MEDS: ESCITALOPRAM 10 MG TABLET PO SCH (22:16)
[2021-09-10] MEDS: MEROPENEM 500 MG in SODIUM CHLORIDE 0.9% 100 ML IV SCH ×2 (02:22→08:35)
[2021-09-10] MEDS: oxyCODONE/ACETAMINOPHEN 5-325 MG TABLET PO PRN ×3 (03:40→20:55)
[2021-09-10 05:08] LABS: Basophils # 0.1 10*3/uL (0.0-0.2); Basophils % 0.3 % (0.0-0.8); Eosinophils # 0.6 10*3/uL (0.0-0.87); Eosinophils % 3.3 % (0.00-10.9); Hematocrit 35.5 VOL% (42.0-52.0); Hemoglobin 11.3 GM/DL (14.0-18.0); Immature Granulocytes % 0.6 %; Lymphocytes # 2.8 10*3/uL (1.4-4.0); Lymphocytes % 16.5 % (21.2-54.2); Mean Corpuscular HGB Conc 31.8 GM/DL (32-36); Mean Corpuscular Volume 86.2 FL (87-102); Mean Platelet Volume 9.4 FL (9.6-12.0); Monocytes # 1.4 10*3/uL (0.11-0.8); Monocytes % 8.2 % (1.7-12.7); Neutrophils % 71.1 % (38.7-73.9); Platelet Count 396 T/CUMM (130-400); Red Blood Count 4.12 MC/CUMM (3.8-5.5); Red Cell Distribution Width 13.8 % (9.3-17.3); White Blood Count 16.9 T/CUMM (4-12)
[2021-09-10 05:23] LABS: Calcium 8.3 MG/DL (8.5-10.1); Potassium 4.1 MMOL/L (3.5-5.1)
[2021-09-10] MEDS: INSULIN GLARGINE 100 UNIT/ML SUBCUT SCH ×2 (08:34→12:05)
[2021-09-10] MEDS: PANTOPRAZOLE 40 MG TABLET PO SCH (08:35)
[2021-09-10] MEDS: INSULIN LISPRO 100 UNIT/ML SUBCUT SCH ×4 (08:35→20:56)
[2021-09-10] MEDS: MORPHINE 2 MG/1 ML SYRINGE IV PRN (11:06)
[2021-09-10] MEDS: metroNIDAZOLE INJ 500 MG/100 ML PREMIX IV SCH (16:58)
[2021-09-10] MEDS: ESCITALOPRAM 10 MG TABLET PO SCH (20:55)
[2021-09-11] MEDS: metroNIDAZOLE INJ 500 MG/100 ML PREMIX IV SCH ×2 (01:59→08:35)
[2021-09-11] MEDS: ONDANSETRON 4 MG/2 ML VIAL IV PRN (02:06)
[2021-09-11 05:43] LABS: Basophils % 0.2 % (0.0-0.8); Eosinophils # 0.5 10*3/uL (0.0-0.87); Eosinophils % 3.2 % (0.00-10.9); Hemoglobin 11.8 GM/DL (14.0-18.0); Immature Granulocytes % 0.7 %; Immature Granulocytes Absolute 0.11 #; Lymphocytes # 3.3 10*3/uL (1.4-4.0); Lymphocytes % 19.8 % (21.2-54.2); Mean Corpuscular HGB Conc 31.9 GM/DL (32-36); Mean Corpuscular Volume 85.8 FL (87-102); Mean Platelet Volume 9.9 FL (9.6-12.0); Monocytes # 1.2 10*3/uL (0.11-0.8); Monocytes % 7.3 % (1.7-12.7); Neutrophils % 68.8 % (38.7-73.9); Platelet Count 402 T/CUMM (130-400); Red Blood Count 4.31 MC/CUMM (3.8-5.5); Red Cell Distribution Width 13.6 % (9.3-17.3); White Blood Count 16.8 T/CUMM (4-12)
[2021-09-11 05:56] LABS: Calcium 8.5 MG/DL (8.5-10.1); Osmolality,Calculated 275.4 MOS/KG (273-304); Potassium 4.4 MMOL/L (3.5-5.1)
[2021-09-11] MEDS: INSULIN LISPRO 100 UNIT/ML SUBCUT SCH ×4 (08:34→20:48)
[2021-09-11] MEDS: PANTOPRAZOLE 40 MG TABLET PO SCH (08:34)
[2021-09-11] MEDS: INSULIN GLARGINE 100 UNIT/ML SUBCUT SCH (11:05)
[2021-09-11] MEDS: MORPHINE 2 MG/1 ML SYRINGE IV PRN (13:39)
[2021-09-11] MEDS: metroNIDAZOLE 500 MG TABLET PO SCH ×2 (16:48→20:47)
[2021-09-11] MEDS: LINEZOLID 600 MG TABLET PO SCH (20:47)
[2021-09-11] MEDS: oxyCODONE/ACETAMINOPHEN 5-325 MG TABLET PO PRN (20:48)
[2021-09-11] MEDS ORDERED: ENOXAPARIN 40 MG/0.4 ML SYRINGE SUBCUT SCH (21:00)
[2021-09-12 05:02] LABS: Basophils # 0.1 10*3/uL (0.0-0.2); Basophils % 0.3 % (0.0-0.8); Eosinophils # 0.6 10*3/uL (0.0-0.87); Hematocrit 35.8 VOL% (42.0-52.0); Hemoglobin 11.6 GM/DL (14.0-18.0); Immature Granulocytes % 0.5 %; Immature Granulocytes Absolute 0.08 #; Lymphocytes # 3.5 10*3/uL (1.4-4.0); Lymphocytes % 22.1 % (21.2-54.2); Mean Corpuscular HGB Conc 32.4 GM/DL (32-36); Mean Corpuscular Volume 85.2 FL (87-102); Mean Platelet Volume 9.5 FL (9.6-12.0); Monocytes % 6.4 % (1.7-12.7); Neutrophils % 66.7 % (38.7-73.9); Platelet Count 471 T/CUMM (130-400); Red Cell Distribution Width 13.7 % (9.3-17.3); White Blood Count 15.7 T/CUMM (4-12)
[2021-09-12 08:21] LABS: Calcium 8.6 MG/DL (8.5-10.1); Osmolality,Calculated 275.1 MOS/KG (273-304); Potassium 3.6 MMOL/L (3.5-5.1)
[2021-09-12] MEDS: INSULIN GLARGINE 100 UNIT/ML SUBCUT SCH (09:27)
[2021-09-12] MEDS: INSULIN LISPRO 100 UNIT/ML SUBCUT SCH ×2 (09:27→12:40)
[2021-09-12] MEDS: LINEZOLID 600 MG TABLET PO SCH (09:28)
[2021-09-12] MEDS: metroNIDAZOLE 500 MG TABLET PO SCH (09:28)
[2021-09-12] MEDS: oxyCODONE/ACETAMINOPHEN 5-325 MG TABLET PO PRN (09:28)
[2021-09-12] MEDS: PANTOPRAZOLE 40 MG TABLET PO SCH (09:28)
[2021-09-12 11:58] VITALS: BP 138/76
[2021-09-12] MEDS: MORPHINE 2 MG/1 ML SYRINGE IV PRN (12:53)
[2021-09-12] MEDS ORDERED: metFORMIN 500 MG TABLET PO SCH (17:00)
== END 2021-09-12 13:31 | disposition home health service (06) | DRG 717 ==
LOC: N.ED 21:35 → N.EDINP 09-05 00:18 → SUATTDRO 09-05 00:18 → N.5E 09-05 02:10
PROVIDERS: ADMIT Emergency Medicine; ATTEND Internal Medicine

== ENCOUNTER 2021-10-22 14:17 | Inpatient (IN) ==
[2021-10-22] MEDS ORDERED: GENTAMICIN INJ 160 MG in SODIUM CHLORIDE 0.9% 100 ML IV STA (16:58)
[2021-10-22] MEDS ORDERED: VANCOMYCIN INJ 1,000 MG in SODIUM CHLORIDE 0.9% 250 ML IV STA (16:58)
[2021-10-22] MEDS ORDERED: CLINDAMYCIN INJ 600 MG/50 ML PREMIX IV STA (16:58)
[2021-10-22 17:41] LABS: Basophils % 0.2 % (0.0-0.8); Eosinophils # 0.3 10*3/uL (0.0-0.87); Eosinophils % 1.7 % (0.00-10.9); Hematocrit 44.3 VOL% (42.0-52.0); Hemoglobin 14.7 GM/DL (14.0-18.0); Immature Granulocytes % 0.5 %; Immature Granulocytes Absolute 0.08 #; Lymphocytes % 24.5 % (21.2-54.2); Mean Corpuscular HGB Conc 33.2 GM/DL (32-36); Mean Platelet Volume 9.9 FL (9.6-12.0); Monocytes # 0.7 10*3/uL (0.11-0.8); Monocytes % 4.3 % (1.7-12.7); Neutrophils % 68.8 % (38.7-73.9); Platelet Count 437 T/CUMM (130-400); Red Blood Count 5.34 MC/CUMM (3.8-5.5); Red Cell Distribution Width 14.3 % (9.3-17.3); White Blood Count 16.3 T/CUMM (4-12)
[2021-10-22 17:58] LABS: Albumin 3.6 G/DL (3.4-5.0); Bilirubin,Total 0.4 MG/DL (0.20-1.00); Calcium 9.3 MG/DL (8.5-10.1); Osmolality,Calculated 276.1 MOS/KG (273-304); Potassium 3.8 MMOL/L (3.5-5.1); Total Protein 7.8 G/DL (6.4-8.2)
[2021-10-22] MEDS ORDERED: ONDANSETRON 4 MG/2 ML VIAL IV PRN (18:43)
[2021-10-22] MEDS ORDERED: GLUCAGON 1 MG VIAL IM PRN ×2 (18:43)
[2021-10-22] MEDS ORDERED: DEXTROSE 50% 25 GM/50 ML VIAL IV PRN (18:43)
[2021-10-22] MEDS ORDERED: DEXTROSE 10% 250 ML BAG IV PRN (18:51)
[2021-10-22] MEDS: ATORVASTATIN 80 MG TABLET PO SCH (22:15)
[2021-10-22] MEDS: LACTATED RINGERS 1,000 ML IV SCH (22:15)
[2021-10-22] MEDS: INSULIN LISPRO 100 UNIT/ML SUBCUT SCH (22:15)
[2021-10-22] MEDS: ESCITALOPRAM 10 MG TABLET PO SCH (22:15)
[2021-10-22 22:38] LABS: Mucus,Urine Occasional /LPF (Occasional); RBC,Urine 1 /HPF (0-4); Squamous Epithelial Cell,Urine Occasional /HPF (0-10)
[2021-10-22 22:39] LABS: Bilirubin,Urine Negative (Negative); Blood, Urine Negative (Negative); Glucose,Urine (UA) >=1000 mg/dL (Negative); Ketones,Urine Negative (Negative); Nitrite,Urine Negative (Negative); Protein,Urine Negative (Negative); Urine Appearance Clear (Clear); Urine Color Yellow (Yellow); Urine Specific Gravity 1.025 (1.001-1.035); Urine Urobilinogen 0.2 eU/dL (<2.0)
[2021-10-23 04:22] LABS: Basophils % 0.2 % (0.0-0.8); Eosinophils # 0.4 10*3/uL (0.0-0.87); Eosinophils % 2.2 % (0.00-10.9); Hematocrit 37.8 VOL% (42.0-52.0); Hemoglobin 12.6 GM/DL (14.0-18.0); Immature Granulocytes % 0.4 %; Immature Granulocytes Absolute 0.06 #; Lymphocytes % 24.5 % (21.2-54.2); Mean Corpuscular HGB Conc 33.3 GM/DL (32-36); Mean Corpuscular Volume 83.3 FL (87-102); Mean Platelet Volume 9.5 FL (9.6-12.0); Monocytes # 0.9 10*3/uL (0.11-0.8); Monocytes % 5.2 % (1.7-12.7); Neutrophils % 67.5 % (38.7-73.9); Platelet Count 360 T/CUMM (130-400); Red Blood Count 4.54 MC/CUMM (3.8-5.5); Red Cell Distribution Width 14.1 % (9.3-17.3); White Blood Count 16.2 T/CUMM (4-12)
[2021-10-23 04:51] LABS: Calcium 8.8 MG/DL (8.5-10.1); Osmolality,Calculated 283.5 MOS/KG (273-304); Potassium 3.5 MMOL/L (3.5-5.1)
[2021-10-23] MEDS: LACTATED RINGERS 1,000 ML IV SCH ×3 (07:30→23:02)
[2021-10-23] MEDS: INSULIN LISPRO 100 UNIT/ML SUBCUT SCH ×4 (08:34→20:33)
[2021-10-23] MEDS: PANTOPRAZOLE 40 MG TABLET PO SCH (08:34)
[2021-10-23] MEDS ORDERED: VANCOMYCIN INJ 1,000 MG in SODIUM CHLORIDE 0.9% 250 ML IV SCH (14:30)
[2021-10-23] MEDS: CLINDAMYCIN INJ 600 MG/50 ML PREMIX IV SCH ×2 (14:58→23:06)
[2021-10-23] MEDS: GENTAMICIN INJ 160 MG in SODIUM CHLORIDE 0.9% 100 ML IV SCH (17:38)
[2021-10-23] MEDS: VANCOMYCIN INJ 1,750 MG in SODIUM CHLORIDE 0.9% 500 ML IV SCH (18:47)
[2021-10-23] MEDS: ESCITALOPRAM 10 MG TABLET PO SCH (20:33)
[2021-10-23] MEDS: ATORVASTATIN 80 MG TABLET PO SCH (20:33)
[2021-10-24] MEDS: GENTAMICIN INJ 160 MG in SODIUM CHLORIDE 0.9% 100 ML IV SCH ×3 (02:05→17:10)
[2021-10-24 04:56] LABS: Basophils % 0.3 % (0.0-0.8); Eosinophils # 0.3 10*3/uL (0.0-0.87); Eosinophils % 2.7 % (0.00-10.9); Hematocrit 34.7 VOL% (42.0-52.0); Hemoglobin 11.6 GM/DL (14.0-18.0); Immature Granulocytes % 0.4 %; Immature Granulocytes Absolute 0.05 #; Lymphocytes # 3.7 10*3/uL (1.4-4.0); Lymphocytes % 30.1 % (21.2-54.2); Mean Corpuscular HGB Conc 33.4 GM/DL (32-36); Mean Platelet Volume 9.5 FL (9.6-12.0); Monocytes # 0.8 10*3/uL (0.11-0.8); Monocytes % 6.5 % (1.7-12.7); Platelet Count 321 T/CUMM (130-400); Red Blood Count 4.18 MC/CUMM (3.8-5.5); White Blood Count 12.4 T/CUMM (4-12)
[2021-10-24 05:13] LABS: Calcium 8.2 MG/DL (8.5-10.1); Osmolality,Calculated 286.4 MOS/KG (273-304); Potassium 3.8 MMOL/L (3.5-5.1)
[2021-10-24] MEDS: VANCOMYCIN INJ 1,750 MG in SODIUM CHLORIDE 0.9% 500 ML IV SCH ×2 (06:15→17:11)
[2021-10-24] MEDS: INSULIN LISPRO 100 UNIT/ML SUBCUT SCH ×4 (08:59→21:55)
[2021-10-24] MEDS: CLINDAMYCIN INJ 600 MG/50 ML PREMIX IV SCH ×2 (09:00→15:09)
[2021-10-24] MEDS ORDERED: MAGNESIUM SULF RIDER 2 GM/50 ML PREMIX IV ONE (09:00)
[2021-10-24] MEDS: LACTATED RINGERS 1,000 ML IV SCH ×2 (09:03→18:24)
[2021-10-24] MEDS: PANTOPRAZOLE 40 MG TABLET PO SCH (09:27)
[2021-10-24] MEDS ORDERED: propofoL 200 MG/20 ML VIAL IV ONE (09:55)
[2021-10-24] MEDS ORDERED: ONDANSETRON 4 MG/2 ML VIAL ONE (09:55)
[2021-10-24] MEDS ORDERED: LIDOCAINE 2% 5 ML VIAL ONE (09:55)
[2021-10-24] MEDS ORDERED: fentaNYL 100 MCG/2 ML VIAL ONE (09:55)
[2021-10-24] MEDS ORDERED: MIDAZOLAM 2 MG/2 ML VIAL ONE (09:55)
[2021-10-24] MEDS ORDERED: SEVOFLURANE 1 UNIT/15 MINUTE INH ONE ×2 (09:55→11:13)
[2021-10-24] MEDS ORDERED: LIDOCAINE 1%/EPI INJ 20 ML VIAL ONE (10:03)
[2021-10-24] MEDS ORDERED: BUPIVACAINE MPF 0.25% 10 ML VIAL ONE (10:03)
[2021-10-24] MEDS: ATORVASTATIN 80 MG TABLET PO SCH (21:56)
[2021-10-24] MEDS: ESCITALOPRAM 10 MG TABLET PO SCH (21:56)
[2021-10-25] MEDS: GENTAMICIN INJ 160 MG in SODIUM CHLORIDE 0.9% 100 ML IV SCH ×2 (02:27→09:44)
[2021-10-25] MEDS: LACTATED RINGERS 1,000 ML IV SCH ×3 (05:35→11:33)
[2021-10-25 05:55] LABS: Basophils % 0.2 % (0.0-0.8); Eosinophils # 0.3 10*3/uL (0.0-0.87); Eosinophils % 2.6 % (0.00-10.9); Hematocrit 35.9 VOL% (42.0-52.0); Hemoglobin 11.8 GM/DL (14.0-18.0); Immature Granulocytes % 0.5 %; Immature Granulocytes Absolute 0.06 #; Lymphocytes # 3.5 10*3/uL (1.4-4.0); Lymphocytes % 26.9 % (21.2-54.2); Mean Corpuscular HGB Conc 32.9 GM/DL (32-36); Mean Corpuscular Volume 84.3 FL (87-102); Mean Platelet Volume 9.8 FL (9.6-12.0); Monocytes # 0.8 10*3/uL (0.11-0.8); Monocytes % 6.2 % (1.7-12.7); Neutrophils % 63.6 % (38.7-73.9); Platelet Count 301 T/CUMM (130-400); Red Blood Count 4.26 MC/CUMM (3.8-5.5); Red Cell Distribution Width 14.1 % (9.3-17.3); White Blood Count 12.8 T/CUMM (4-12)
[2021-10-25] MEDS: VANCOMYCIN INJ 1,750 MG in SODIUM CHLORIDE 0.9% 500 ML IV SCH (06:07)
[2021-10-25 06:16] LABS: Calcium 8.6 MG/DL (8.5-10.1); Osmolality,Calculated 281.3 MOS/KG (273-304); Potassium 3.8 MMOL/L (3.5-5.1)
[2021-10-25] MEDS ORDERED: MAGNESIUM SULF RIDER 2 GM/50 ML PREMIX IV ONE (09:00)
[2021-10-25] MEDS: PANTOPRAZOLE 40 MG TABLET PO SCH (09:41)
[2021-10-25] MEDS: INSULIN LISPRO 100 UNIT/ML SUBCUT SCH ×2 (09:41→12:45)
[2021-10-25 11:47] VITALS: BP 126/76
== END 2021-10-25 15:46 | disposition home health service (06) | DRG 638 ==
LOC: N.ED 14:17 → N.EDINP 18:44 → N.5E 10-23 15:20
PROVIDERS: ADMIT Internal Medicine; ATTEND Internal Medicine